=== PATIENT | male | born 1985 | race Caucasian/White ===

== ENCOUNTER 2017-05-24 10:45 | Emergency (ER) | payer OTHER ==
[~2017-05-24] VITALS: Ht 182.9 cm; Wt 94.2 kg
[2017-05-24] MEDS ORDERED: CYCLOBENZAPRINE10 MG PO (13:26)
[2017-05-24 15:52] VITALS: BP 128/86
== END 2017-05-24 15:50 | disposition home or self-care (01) ==
LOC: EME 10:45
DX: S16.1XXA Strain of muscle, fascia and tendon at neck level, initial encounter (principal); V44.5XXA Car driver injured in collision with heavy transport vehicle or bus in traffic accident, initial encounter
CPT/HCPCS: 72125; 99281; 99284